=== PATIENT | male | born 1995 | race Caucasian/White ===

== ENCOUNTER 2018-06-03 01:41 | Emergency (ER) | payer OTHER ==
[2018-06-03] MEDS: LABETALOL HCL 20MG INJ IV ×2 (02:34→03:44)
[2018-06-03 02:51] LABS: ADD MAN DIFF? NO
[2018-06-03 02:53] LABS: BASOPHILS % 0.2 % (0.0-2.0); EOSINOPHILS # 0.1 10^3/ul (0.0-0.5); EOSINOPHILS % 0.4 % (0.0-7.0); HEMATOCRIT 42.7 % (42.0-52.0); HEMOGLOBIN 13.7 g/dl (14.0-18.0); LYMPHOCYTES # 2.2 10^3/ul (0.8-2.9); LYMPHOCYTES % 13.1 % (15.0-51.0); MEAN CORPUSCULAR HEMOGLOBIN 27.1 pg (29.0-33.0); MEAN CORPUSCULAR HGB CONC 32.1 g/dl (32.0-37.0); MEAN CORPUSCULAR VOLUME 84.4 fl (82.0-101.0); MEAN PLATELET VOLUME 9.3 fl (7.4-10.4); MONOCYTE # 0.7 10^3/ul (0.3-0.9); MONOCYTES % 4.3 % (0.0-11.0); NEUTROPHIL # 13.8 10^3/ul (1.6-7.5); NEUTROPHILS % 81.2 % (39.0-77.0); PLATELET COUNT 332 10^3/UL (140-415); RED BLOOD COUNT 5.06 10^6/ul (4.70-6.10); RED CELL DISTRIBUTION WIDTH 12.9 % (11.5-14.5)
[2018-06-03 03:00] LABS: INR 0.96; PROTIME 12.9 Sec (11.9-14.9)
[2018-06-03 03:01] LABS: PARTIAL THROMBOPLASTIN TIME 27.4 Sec (23.0-35.0)
[2018-06-03 03:04] LABS: ANION GAP 12 (5-13); BLOOD UREA NITROGEN 15 mg/dl (7-20); CALCIUM 9.2 mg/dl (8.4-10.2); CARBON DIOXIDE 22 mmol/L (21-31); CHLORIDE 106 mmol/L (97-110); CREATININE 1.01 mg/dl (0.61-1.24); Estimated GFR > 60 mL/min (>60); GLUCOSE 168 mg/dl (70-220); SODIUM 140 mmol/L (135-144)
[2018-06-03 03:10] LABS: POTASSIUM 3.5 mmol/L (3.5-5.1)
[2018-06-03] MEDS: morphine 2 MG INJ IV (03:45)
[2018-06-03] MEDS: ONDANSETRON 4 MG INJ IV (03:45)
[2018-06-03] MEDS: AMOXICILLIN/CLAV 875 MG TAB PO (05:13)
== END 2018-06-03 05:18 | disposition home or self-care (01) ==
LOC: E/R 05:18
DX: I16.0 Hypertensive urgency (principal); J01.90 Acute sinusitis, unspecified; D64.9 Anemia, unspecified; R05 Cough; I12.9 Hypertensive chronic kidney disease with stage 1 through stage 4 chronic kidney disease, or unspecified chronic kidney disease; N18.9 Chronic kidney disease, unspecified; Z86.73 Personal history of transient ischemic attack (TIA), and cerebral infarction without residual deficits
CPT/HCPCS: 36415; 70450; 71045; 80048; 85025; 85610; 85730; 96374; 96375; 96376; 99285-25

== ENCOUNTER 2018-08-08 12:06 | Emergency (ER) | payer OTHER ==
[2018-08-08 13:50] LABS: ADD MAN DIFF? NO
[2018-08-08] MEDS: ONDANSETRON 4 MG INJ IV (13:50)
[2018-08-08] MEDS: hydrALAzine 20 MG INJ IV ×2 (13:51→15:59)
[2018-08-08] MEDS: morphine 2 MG INJ IV ×2 (13:51→17:12)
[2018-08-08 13:55] LABS: WHITE BLOOD COUNT 11.2 10^3/ul (4.8-10.8)
[2018-08-08 13:55] LABS: BASOPHILS % 0.2 % (0.0-2.0); EOSINOPHILS # 0.1 10^3/ul (0.0-0.5); EOSINOPHILS % 1.1 % (0.0-7.0); HEMATOCRIT 47.8 % (42.0-52.0); HEMOGLOBIN 15.5 g/dl (14.0-18.0); LYMPHOCYTES # 1.9 10^3/ul (0.8-2.9); LYMPHOCYTES % 17.2 % (15.0-51.0); MEAN CORPUSCULAR HEMOGLOBIN 27.7 pg (29.0-33.0); MEAN CORPUSCULAR HGB CONC 32.4 g/dl (32.0-37.0); MEAN CORPUSCULAR VOLUME 85.4 fl (82.0-101.0); MEAN PLATELET VOLUME 10.2 fl (7.4-10.4); MONOCYTE # 0.8 10^3/ul (0.3-0.9); MONOCYTES % 7.4 % (0.0-11.0); NEUTROPHIL # 8.3 10^3/ul (1.6-7.5); NEUTROPHILS % 73.7 % (39.0-77.0); PLATELET COUNT 332 10^3/UL (140-415); RED CELL DISTRIBUTION WIDTH 13.3 % (11.5-14.5)
[2018-08-08 14:14] LABS: PROTIME 12.3 Sec (11.9-14.9)
[2018-08-08 14:15] LABS: PARTIAL THROMBOPLASTIN TIME 31.2 Sec (23.0-35.0)
[2018-08-08 14:24] LABS: ANION GAP 8 (5-13); BLOOD UREA NITROGEN 17 mg/dl (7-20); CALCIUM 9.7 mg/dl (8.4-10.2); CARBON DIOXIDE 28 mmol/L (21-31); CHLORIDE 104 mmol/L (97-110); CREATININE 0.82 mg/dl (0.61-1.24); Estimated GFR > 60 mL/min (>60); GLUCOSE 102 mg/dl (70-220); POTASSIUM 3.5 mmol/L (3.5-5.1); SODIUM 140 mmol/L (135-144)
== END 2018-08-08 17:30 | disposition home or self-care (01) ==
LOC: E/R 12:06
DX: I10 Essential (primary) hypertension (principal); Z86.73 Personal history of transient ischemic attack (TIA), and cerebral infarction without residual deficits
CPT/HCPCS: 36415; 70450; 80048; 85025; 85610; 85730; 96374; 96375; 96376; 99285-25

== ENCOUNTER 2018-08-08 20:06 | Inpatient (IN) | payer OTHER ==
[2018-08-09] MEDS: hydrALAzine 20 MG INJ IV (01:18)
[2018-08-09 01:24] LABS: ADD MAN DIFF? NO
[2018-08-09 01:27] LABS: WHITE BLOOD COUNT 10.6 10^3/ul (4.8-10.8)
[2018-08-09 01:27] LABS: BASOPHILS % 0.2 % (0.0-2.0); EOSINOPHILS % 0.2 % (0.0-7.0); HEMATOCRIT 46.1 % (42.0-52.0); LYMPHOCYTES # 1.7 10^3/ul (0.8-2.9); LYMPHOCYTES % 16.3 % (15.0-51.0); MEAN CORPUSCULAR HEMOGLOBIN 28.1 pg (29.0-33.0); MEAN CORPUSCULAR HGB CONC 32.5 g/dl (32.0-37.0); MEAN CORPUSCULAR VOLUME 86.5 fl (82.0-101.0); MEAN PLATELET VOLUME 9.5 fl (7.4-10.4); MONOCYTE # 0.6 10^3/ul (0.3-0.9); MONOCYTES % 5.5 % (0.0-11.0); NEUTROPHIL # 8.2 10^3/ul (1.6-7.5); NEUTROPHILS % 77.4 % (39.0-77.0); PLATELET COUNT 328 10^3/UL (140-415); RED BLOOD COUNT 5.33 10^6/ul (4.70-6.10); RED CELL DISTRIBUTION WIDTH 13.2 % (11.5-14.5)
[2018-08-09 01:46] LABS: ALANINE AMINOTRANSFERASE 18 IU/L (13-69); ALBUMIN 4.3 g/dl (3.3-4.9); ALBUMIN/GLOBULIN RATIO 1.19; ALKALINE PHOSPHATASE 81 IU/L (42-121); ANION GAP 17 (5-13); ASPARTATE AMINO TRANSFERASE 26 IU/L (15-46); BILIRUBIN,INDIRECT 0.3 mg/dl (0-1.1); BILIRUBIN,TOTAL 0.3 mg/dl (0.2-1.3); BLOOD UREA NITROGEN 15 mg/dl (7-20); CALCIUM 10.1 mg/dl (8.4-10.2); CARBON DIOXIDE 24 mmol/L (21-31); CHLORIDE 99 mmol/L (97-110); CREATININE 0.94 mg/dl (0.61-1.24); Estimated GFR > 60 mL/min (>60); GLUCOSE 165 mg/dl (70-220); POTASSIUM 3.9 mmol/L (3.5-5.1); SODIUM 140 mmol/L (135-144); TOTAL PROTEIN 7.9 g/dl (6.1-8.1)
[2018-08-09 01:56] LABS: B-TYPE NATRIURETIC PEPTIDE 59 PG/ML (0-125); TROPONIN-I < 0.012 ng/ml (0.000-0.120)
[2018-08-09] MEDS: ONDANSETRON 4 MG INJ IV (02:18)
[2018-08-09] MEDS: morphine 4 MG/ML VIAL IV (02:18)
[2018-08-09] MEDS ORDERED: ONDANSETRON 4 MG TAB PO (03:30)
[2018-08-09] MEDS ORDERED: DOCUSATE SODIUM 100 MG CAP PO (03:30)
[2018-08-09] MEDS ORDERED: hydrALAzine 20 MG INJ IV (03:30)
[2018-08-09] MEDS: PANTOPRAZOLE (EC) 40 MG TAB PO (06:16)
[2018-08-09] MEDS: HYDROCODONE/APAP (5/325) TAB PO ×3 (08:31→20:58)
[2018-08-09] MEDS: NIFEdipine (XL) 30 MG TAB PO ×2 (10:40→20:53)
[2018-08-09] MEDS: TACROLIMUS 1 MG CAP PO ×2 (10:40→20:53)
[2018-08-09] MEDS: MYCOPHENOLATE 250 MG CAP PO (10:40)
[2018-08-09] MEDS: RANITIDINE 150 MG TAB PO ×2 (10:41→20:54)
[2018-08-09] MEDS: LEVETIRACETAM 500 MG TAB PO ×2 (10:41→20:57)
[2018-08-09] MEDS: LABETALOL 100 MG TAB PO ×3 (10:46→20:54)
[2018-08-09] MEDS: predniSONE 2.5 MG TAB PO (10:47)
[2018-08-09] MEDS: ZOLPIDEM 5 MG TAB PO (21:31)
[2018-08-10] MEDS: PANTOPRAZOLE (EC) 40 MG TAB PO (06:24)
[2018-08-10] MEDS: LEVETIRACETAM 500 MG TAB PO (08:46)
[2018-08-10] MEDS: RANITIDINE 150 MG TAB PO (08:46)
[2018-08-10] MEDS: predniSONE 2.5 MG TAB PO (08:47)
[2018-08-10] MEDS: LABETALOL 100 MG TAB PO ×2 (08:47→12:22)
[2018-08-10] MEDS: NIFEdipine (XL) 30 MG TAB PO (08:48)
[2018-08-10] MEDS: TACROLIMUS 1 MG CAP PO (08:48)
[2018-08-10] MEDS: MYCOPHENOLATE 250 MG CAP PO (12:22)
[2018-08-10] MEDS: HYDROCODONE/APAP (5/325) TAB PO (15:22)
== END 2018-08-10 16:37 | disposition home or self-care (01) | DRG 103 ==
LOC: E/R 20:06 → TEL 08-09 03:31
DX: R51 Headache (principal); Z94.0 Kidney transplant status; I10 Essential (primary) hypertension; G47.00 Insomnia, unspecified
CPT/HCPCS: 36415; 70450; 71045; 80053; 83880; 84484; 85025; 93005; 96374; 96375; 99285-25

== ENCOUNTER 2018-08-24 03:47 | Inpatient (IN) | payer OTHER ==
[2018-08-24] MEDS: ONDANSETRON 4 MG INJ IV (04:30)
[2018-08-24] MEDS: morphine 4 MG/ML VIAL IV (04:31)
[2018-08-24] MEDS: hydrALAzine 20 MG INJ IV (04:33)
[2018-08-24 04:40] LABS: ADD MAN DIFF? NO
[2018-08-24 04:43] LABS: WHITE BLOOD COUNT 10.7 10^3/ul (4.8-10.8)
[2018-08-24 04:43] LABS: BASOPHILS % 0.2 % (0.0-2.0); EOSINOPHILS # 0.1 10^3/ul (0.0-0.5); EOSINOPHILS % 0.6 % (0.0-7.0); HEMATOCRIT 41.9 % (42.0-52.0); HEMOGLOBIN 13.3 g/dl (14.0-18.0); LYMPHOCYTES # 1.9 10^3/ul (0.8-2.9); LYMPHOCYTES % 17.5 % (15.0-51.0); MEAN CORPUSCULAR HEMOGLOBIN 27.7 pg (29.0-33.0); MEAN CORPUSCULAR HGB CONC 31.7 g/dl (32.0-37.0); MEAN CORPUSCULAR VOLUME 87.3 fl (82.0-101.0); MEAN PLATELET VOLUME 9.9 fl (7.4-10.4); MONOCYTE # 0.7 10^3/ul (0.3-0.9); MONOCYTES % 6.6 % (0.0-11.0); NEUTROPHILS % 74.5 % (39.0-77.0); PLATELET COUNT 305 10^3/UL (140-415); RED CELL DISTRIBUTION WIDTH 13.1 % (11.5-14.5)
[2018-08-24 05:03] LABS: ANION GAP 10 (5-13); BLOOD UREA NITROGEN 16 mg/dl (7-20); CALCIUM 9.1 mg/dl (8.4-10.2); CARBON DIOXIDE 25 mmol/L (21-31); CHLORIDE 106 mmol/L (97-110); CREATININE 0.88 mg/dl (0.61-1.24); Estimated GFR > 60 mL/min (>60); GLUCOSE 103 mg/dl (70-220); POTASSIUM 3.2 mmol/L (3.5-5.1); SODIUM 141 mmol/L (135-144)
[2018-08-24 05:05] LABS: INR 0.92; PARTIAL THROMBOPLASTIN TIME 28.7 Sec (23.0-35.0); PROTIME 12.5 Sec (11.9-14.9)
[2018-08-24 05:14] LABS: TROPONIN-I < 0.012 ng/ml (0.000-0.120)
[2018-08-24] MEDS ORDERED: ACETAMINOPHEN 325 MG TAB PO (05:30)
[2018-08-24] MEDS ORDERED: NACL 0.9% 3 ML SYG IV (05:30)
[2018-08-24] MEDS ORDERED: DOCUSATE SODIUM 100 MG CAP PO ×2 (05:30)
[2018-08-24] MEDS ORDERED: BISACODYL (EC) 5 MG TAB PO (05:30)
[2018-08-24] MEDS ORDERED: ONDANSETRON 4 MG TAB PO (05:30)
[2018-08-24] MEDS ORDERED: NIFEdipine (XL) 30 MG TAB PO (09:00)
[2018-08-24] MEDS: PANTOPRAZOLE (EC) 40 MG TAB PO (09:42)
[2018-08-24] MEDS: POTASSIUM CHLORIDE (SR) 20 MEQ TAB PO (09:42)
[2018-08-24] MEDS: TACROLIMUS 1 MG CAP PO ×2 (09:46→21:42)
[2018-08-24] MEDS: MYCOPHENOLATE 250 MG CAP PO (09:46)
[2018-08-24] MEDS: RANITIDINE 150 MG TAB PO ×2 (09:46→21:42)
[2018-08-24] MEDS: LEVETIRACETAM 500 MG TAB PO ×2 (09:47→21:42)
[2018-08-24] MEDS: NIFEdipine (XL) 60 MG TAB PO (09:48)
[2018-08-24] MEDS: LABETALOL 100 MG TAB PO ×3 (09:48→21:47)
[2018-08-24] MEDS: predniSONE 2.5 MG TAB PO (09:48)
[2018-08-24] MEDS ORDERED: HYDROCODONE/APAP (5/325) TAB PO (16:00)
[2018-08-24 17:55] LABS: ADD UMIC NO; UR ASCORBIC ACID NEGATIVE (NEGATIVE); UR BILIRUBIN (Dip) NEGATIVE (NEGATIVE); UR BLOOD (Dip) NEGATIVE (NEGATIVE); UR CLARITY CLEAR (CLEAR); UR COLOR YELLOW (YELLOW); UR GLUCOSE (Dip) NEGATIVE (NEGATIVE); UR KETONES (Dip) NEGATIVE (NEGATIVE); UR LEUKOCYTE ESTERASE (Dip) NEGATIVE Leu/ul (NEGATIVE); UR NITRITE (Dip) NEGATIVE (NEGATIVE); UR TOTAL PROTEIN (Dip) NEGATIVE (NEGATIVE); UR UROBILINOGEN (Dip) NEGATIVE (NEGATIVE)
[2018-08-24 18:04] LABS: SODIUM,URINE RANDOM 89 mmol/L (30-90)
[2018-08-24] MEDS: LORAZEPAM 2 MG INJ IV (22:35)
[2018-08-25 05:28] LABS: ADD MAN DIFF? NO
[2018-08-25 05:34] LABS: BASOPHILS % 0.3 % (0.0-2.0); EOSINOPHILS # 0.1 10^3/ul (0.0-0.5); EOSINOPHILS % 0.9 % (0.0-7.0); HEMATOCRIT 44.5 % (42.0-52.0); HEMOGLOBIN 14.2 g/dl (14.0-18.0); LYMPHOCYTES % 30.7 % (15.0-51.0); MEAN CORPUSCULAR HGB CONC 31.9 g/dl (32.0-37.0); MEAN CORPUSCULAR VOLUME 87.6 fl (82.0-101.0); MEAN PLATELET VOLUME 10.1 fl (7.4-10.4); MONOCYTE # 0.7 10^3/ul (0.3-0.9); MONOCYTES % 6.9 % (0.0-11.0); NEUTROPHIL # 5.9 10^3/ul (1.6-7.5); PLATELET COUNT 321 10^3/UL (140-415); RED BLOOD COUNT 5.08 10^6/ul (4.70-6.10); RED CELL DISTRIBUTION WIDTH 13.3 % (11.5-14.5)
[2018-08-25 05:34] LABS: WHITE BLOOD COUNT 9.7 10^3/ul (4.8-10.8)
[2018-08-25 05:40] LABS: HEMOGLOBIN A1C 5.1 % (0-5.9)
[2018-08-25 05:55] LABS: ALANINE AMINOTRANSFERASE 16 IU/L (13-69); ALBUMIN 3.8 g/dl (3.3-4.9); ALBUMIN/GLOBULIN RATIO 1.22; ALKALINE PHOSPHATASE 67 IU/L (42-121); ANION GAP 8 (5-13); ASPARTATE AMINO TRANSFERASE 27 IU/L (15-46); BILIRUBIN,INDIRECT 0.4 mg/dl (0-1.1); BILIRUBIN,TOTAL 0.4 mg/dl (0.2-1.3); BLOOD UREA NITROGEN 14 mg/dl (7-20); CALCIUM 9.4 mg/dl (8.4-10.2); CARBON DIOXIDE 26 mmol/L (21-31); CHLORIDE 107 mmol/L (97-110); CREATININE 1.05 mg/dl (0.61-1.24); Estimated GFR > 60 mL/min (>60); GLUCOSE 101 mg/dl (70-220); POTASSIUM 3.6 mmol/L (3.5-5.1); SODIUM 141 mmol/L (135-144); TOTAL PROTEIN 6.9 g/dl (6.1-8.1)
[2018-08-25] MEDS: LABETALOL 200 MG TAB PO ×4 (09:00→14:12)
[2018-08-25] MEDS: MYCOPHENOLATE 250 MG CAP PO ×2 (09:00→10:56)
[2018-08-25] MEDS: LEVETIRACETAM 500 MG TAB PO (09:04)
[2018-08-25] MEDS: TACROLIMUS 1 MG CAP PO (09:04)
[2018-08-25] MEDS: PANTOPRAZOLE (EC) 40 MG TAB PO (09:05)
[2018-08-25] MEDS: RANITIDINE 150 MG TAB PO (09:05)
[2018-08-25] MEDS: NIFEdipine (XL) 60 MG TAB PO (09:05)
[2018-08-25] MEDS: predniSONE 2.5 MG TAB PO (09:05)
[2018-08-25 14:52] LABS: CREATININE, RANDOM URINE 65 mg/dL (20-320); MICROALBUMIN 2.9 mg/dL; MICROALBUMIN/CREATININE RATIO 45 (<30)
== END 2018-08-25 15:07 | disposition home or self-care (01) | DRG 682 ==
LOC: E/R 03:47 → ICU 05:12 → PP2 19:54
DX: I12.0 Hypertensive chronic kidney disease with stage 5 chronic kidney disease or end stage renal disease (principal); N18.6 End stage renal disease; Z94.0 Kidney transplant status; Z86.73 Personal history of transient ischemic attack (TIA), and cerebral infarction without residual deficits; Z95.820 Peripheral vascular angioplasty status with implants and grafts; G40.909 Epilepsy, unspecified, not intractable, without status epilepticus; Z79.899 Other long term (current) drug therapy; E87.6 Hypokalemia; E83.9 Disorder of mineral metabolism, unspecified; G62.9 Polyneuropathy, unspecified; Z86.79 Personal history of other diseases of the circulatory system
CPT/HCPCS: 36415; 70450; 71045; 80048; 80053; 81003; 82043; 83036; 83735; 84155; 84300; 84484; 85025; 85610; 85730; 87081; 93005; 96374; 96375; 99291-25

== ENCOUNTER 2019-01-09 03:19 | Emergency (ER) | payer OTHER ==
[2019-01-09] MEDS: hydrALAzine 20 MG INJ IV (03:45)
[2019-01-09] MEDS: ONDANSETRON 4 MG INJ IV (03:45)
[2019-01-09] MEDS: SOD CHLORIDE 0.9% 500 ML IV (03:45)
[2019-01-09] MEDS: morphine 4 MG/ML VIAL IV (03:45)
[2019-01-09 03:46] LABS: ADD MAN DIFF? NO
[2019-01-09 04:03] LABS: ANION GAP 8 (5-13); BLOOD UREA NITROGEN 12 mg/dl (7-20); CARBON DIOXIDE 25 mmol/L (21-31); CHLORIDE 108 mmol/L (97-110); CREATININE 0.91 mg/dl (0.61-1.24); Estimated GFR > 60 mL/min (>60); GLUCOSE 106 mg/dl (70-220); POTASSIUM 3.6 mmol/L (3.5-5.1); SODIUM 141 mmol/L (135-144)
[2019-01-09 04:11] LABS: WHITE BLOOD COUNT 10.2 10^3/ul (4.8-10.8)
[2019-01-09 04:11] LABS: BASOPHIL # 0.1 10^3/ul (0.0-0.1); BASOPHILS % 0.5 % (0.0-2.0); EOSINOPHILS % 0.4 % (0.0-7.0); HEMATOCRIT 38.4 % (42.0-52.0); HEMOGLOBIN 12.3 g/dl (14.0-18.0); LYMPHOCYTES # 3.2 10^3/ul (0.8-2.9); LYMPHOCYTES % 31.4 % (15.0-51.0); MEAN CORPUSCULAR HEMOGLOBIN 27.2 pg (29.0-33.0); MEAN CORPUSCULAR VOLUME 84.8 fl (82.0-101.0); MEAN PLATELET VOLUME 9.4 fl (7.4-10.4); MONOCYTE # 0.7 10^3/ul (0.3-0.9); MONOCYTES % 6.8 % (0.0-11.0); NEUTROPHIL # 6.2 10^3/ul (1.6-7.5); NEUTROPHILS % 60.5 % (39.0-77.0); PLATELET COUNT 376 10^3/UL (140-415); RED BLOOD COUNT 4.53 10^6/ul (4.70-6.10); RED CELL DISTRIBUTION WIDTH 12.5 % (11.5-14.5)
[2019-01-09] MEDS ORDERED: hydrALAzine 20 MG INJ IV (06:00)
== END 2019-01-09 05:56 | disposition home or self-care (01) ==
LOC: E/R 03:19
DX: G44.209 Tension-type headache, unspecified, not intractable (principal); I10 Essential (primary) hypertension; R11.2 Nausea with vomiting, unspecified
CPT/HCPCS: 36415; 70450; 80048; 85025; 96374; 96375; 99285-25